=== PATIENT | male | born 1955 | race Hispanic/Latino ===

== ENCOUNTER 2019-12-14 06:06 | Day surgery (SDC) | payer OTHER ==
[2019-12-14] MEDS ORDERED: ASPIRIN EC 325 MG TAB PO ONE (06:53)
[2019-12-14 07:39] LABS: Basophils # (Auto) 0.1 K/mm3 (0.0-0.1); Basophils % (Auto) 0.7 % (0.0-1.8); Eosinophils # (Auto) 0.7 K/mm3 (0.0-0.4); Hematocrit 43.6 % (35.5-45.6); Hemoglobin 15.5 gm/dl (11.8-15.2); Lymphocytes # (Auto) 2.7 K/mm3 (1.2-5.4); Lymphocytes % (Auto) 28.6 % (13.4-35.0); Mean Corpuscular HGB Conc 36 % (32-34); Mean Corpuscular Volume 88 fl (84-94); Monocytes # (Auto) 0.7 K/mm3 (0.0-0.8); Monocytes % (Auto) 7.7 % (0.0-7.3); Platelet Count 246 K/mm3 (140-440); Red Blood Count 4.95 M/mm3 (3.65-5.03); Red Cell Distribution Width 13.9 % (13.2-15.2)
[2019-12-14 07:49] LABS: INR 0.93 (0.87-1.13)
[2019-12-14 07:50] LABS: Partial Thromboplastin Time 29.2 Sec. (24.2-36.6)
[2019-12-14 07:51] LABS: Calcium 9.2 mg/dL (8.4-10.2)
[2019-12-14] MEDS ORDERED: MIDAZOLAM 2 MG/2 ML INJ ONE (07:51)
[2019-12-14] MEDS ORDERED: HEPARIN/NS 5000 UNIT/500ML 1,000 ML IR ONE (07:51)
[2019-12-14] MEDS ORDERED: fentaNYL 100 MCG/2 ML INJ ONE (07:51)
[2019-12-14] MEDS: SODIUM CHLORIDE 0.9% 500 ML 500 ML IV SCH ×2 (08:10→09:03)
[2019-12-14] MEDS: LIDOCAINE (2%) 20 MG/1 ML VIAL 20 ML MDV INFILTRATI ONE ×2 (08:59→09:03)
[2019-12-14] MEDS: VERAPAMIL 5 MG/2 ML INJ ONE ×2 (09:04→09:05)
[2019-12-14] MEDS: HEPARIN 10,000 UNITS/10 ML VIAL ONE ×2 (09:04→09:05)
[2019-12-14] MEDS: NITROGLYCERIN SYRINGE 3 ML ONE ×2 (09:04→09:05)
[2019-12-14] MEDS ORDERED: HYDROcodone/ACETAMINOPHEN 5-325 MG TAB PO PRN (09:24)
--- NOTE | 2019-12-14 09:27 | Short Stay Summary ---
Short Stay Documentation Date of service: 12/14/19 - History H&P: obtained from office - Allergies and Medications Current Medications: Allergies blue dye Allergy (Verified 12/14/19 06:53) Rash red meat Allergy (Uncoded 12/14/19 06:53) Unknown Home Medications Medication Instructions Recorded Confirmed Last Taken Type AtorvaSTATin [Lipitor] 40 mg PO QHS 12/14/19 12/14/19 12/13/19 History Furosemide [Lasix] 20 mg PO QDAY 12/14/19 12/14/19 12/13/19 History HYDROcodone/ACETAMINOPHEN 1 each PO TID 12/14/19 12/14/19 12/13/19 History [Verdrocet 2.5-325 mg TAB] Metoprolol [Lopressor TAB] 50 mg PO BID 12/14/19 12/14/19 12/13/19 History Omeprazole 40 mg PO DAILY 12/14/19 12/14/19 12/13/19 History Spironolactone [Aldactone] 25 mg PO QDAY 12/14/19 12/14/19 12/13/19 History amLODIPine [Norvasc] 5 mg PO DAILY 12/14/19 12/14/19 12/13/19 History tiZANidine [Zanaflex 4mg TAB] 4 mg PO Q8HR 12/14/19 12/14/19 12/12/19 History Active Medications Sodium Chloride (Nacl 0.9% 500 Ml) 500 mls @ 50 mls/hr IV DIRECT KAREN Stop: 12/14/19 16:59 Last Admin: 12/14/19 09:03 Dose: 50 mls/hr Documented by: - Brief post op/procedure progress note Date of procedure: 12/14/19 Pre-op diagnosis: sob and cp Post-op diagnosis: same Procedure: see report Anesthesia: local Estimated blood loss: none Pathology: none - Disposition Condition at discharge: Good Disposition: [id number] TO HOME OR SELFCARE - Discharge Diagnoses (1) SOB (shortness of breath) on exertion Status: Acute (2) Hyperlipemia, mixed Status: Chronic (3) Hypertension Status: Chronic Qualifiers: Hypertension type: essential hypertension Qualified Code(s): I10 - Essential (primary) hypertension (4) Chest pain Status: Acute Qualifiers: Chest pain type: unspecified Qualified Code(s): R07.9 - Chest pain, unspecified Short Stay Discharge Plan Activity: advance as tolerated Diet: low fat, low cholesterol, low salt Wound: keep clean and dry Follow up with: AMY ONTIVEROS MD [Primary Care Provider] - 7 Days
[2019-12-14] MEDS ORDERED: traMADol 50 MG TAB PO PRN (09:30)
--- NOTE | 2019-12-14 09:31 | Cardiac Catherization Report ---
PRIMARY CARE PHYSICIAN: Dr. Dallas Stroud. PRIMARY CROOK OPERATOR: Dr. Lopez. CLINICAL INFORMATION: This is a 64-year-old gentleman with persistent shortness of breath with exertion and chest pain despite normal LV function, echocardiogram and chest pain, is here for left heart catheterization. Left heart catheterization performed via the right radial artery, sterile technique, local anesthesia, 6-Greek radial sheath inserted. This was done with moderate sedation, started at 9:02, finished at 9:17, 15 minutes of moderate sedation. PROCEDURE FINDINGS: Left system engaged with JL3.5 catheter. Left main is large and patent, bifurcates into large LAD that is patent from proximally and distally. In the mid, there is a smooth 10-20%, but the rest of the vessel is smooth and patent. Diagonal 1, medium caliber vessel, patent. Circumflex, medium caliber and patent. OM1, moderate tortuosity, patent, small caliber. OM2, small caliber and patent. RCA is a large dominant vessel that is patent from proximally and distally. PDA, PLV are normal. LV gram done in [facility] and [place] shows normal LV function, LVEDP is 16 mmHg, LV was 130, aortic is 130/70. No gradient across the aortic valve on pullback. 5-Greek catheters all taken over guidewire, 6-Greek radial sheath was discontinued. Radial band applied. No hematoma, no bleeding. SUMMARY: Left main patent, LAD patent, mid smooth 10-20%, circumflex patent, OM1 and OM2 patent; RCA large, dominant, patent; normal LV function. Discussed with the patient and the patient's family in detail. JOB# [id number] MARCELLA/JIAN
[2019-12-14 13:31] VITALS: BP 110/67
== END 2019-12-14 13:05 | disposition home or self-care (01) ==
LOC: CATHLABREC 06:06
PROVIDERS: ATTEND Internal Medicine
DX: R06.02 Shortness of breath (principal); R07.89 Other chest pain; E78.2 Mixed hyperlipidemia; I10 Essential (primary) hypertension; I73.9 Peripheral vascular disease, unspecified; I77.810 Thoracic aortic ectasia; I87.2 Venous insufficiency (chronic) (peripheral); K21.9 Gastro-esophageal reflux disease without esophagitis; Z90.49 Acquired absence of other specified parts of digestive tract; Z98.890 Other specified postprocedural states; Z88.8 Allergy status to other drugs, medicaments and biological substances; Z79.899 Other long term (current) drug therapy; Z87.891 Personal history of nicotine dependence; Z87.442 Personal history of urinary calculi
CPT/HCPCS: 36415; 80048; 85025; 85610; 85730; 93005; 93458; 99156; C1894; J1644; J2250; J3010; J7040; Q9967